=== PATIENT | male | born 1965 | race Caucasian/White ===

== ENCOUNTER → 2021-08-09 | Outpatient (CLI) | payer BC ==
--- NOTE | 2021-08-09 17:38 | Diagnostic Imaging Report ---
PA and lateral chest at 4:51 PM INDICATION: Shortness of breath COMPARISON: There are no prior studies available for comparison. The heart size is within normal limits. There is no evidence for failure, pneumonia or for a pleural effusion. On the PA view, there is a small 4 mm fairly well-circumscribed nodular density near the apex of the heart. This finding is not well-visualized on the lateral view. I suspect this is a small granuloma and not a neoplastic nodule. If previous studies are available, they would be helpful for comparison. If there are no prior studies available, then CT of the chest should be considered for further study. The mediastinum is not widened. The osseous structures are intact. IMPRESSION: 1. There is no evidence for active disease. 2. The small nodular density near the apex of the heart is most likely a benign process. Recommendations as above. Dictated by: Dictated on workstation # [id number]
== END ==
LOC: RAD FS 16:41
PROVIDERS: ATTEND Nurse Practitioner Family
DX: R06.02 Shortness of breath (principal); R93.1 Abnormal findings on diagnostic imaging of heart and coronary circulation
CPT/HCPCS: 71046

== ENCOUNTER → 2021-09-02 | Outpatient (CLI) | payer BC ==
[~2021-09-02] MED LIST: CATHETER FLUSH 10 ML SYR IV PRN; HOLD METFORMIN - RECEIVED CONTRAST 20 ML VIAL IV SCH; IOHEXOL 350 MG/ML 100 ML (OMNIPAQUE 350) VIAL IV ONE; NS 100 ML (IVPB) BAG IV ONE
--- NOTE | 2021-09-02 14:44 | Diagnostic Imaging Report ---
PROCEDURE: CT chest with contrast only. TECHNIQUE: Multiple contiguous axial images were obtained through the chest after administration of intravenous contrast. Auto Exposure Controls were utilized during the CT exam to meet ALARA standards for radiation dose reduction. INDICATION: Pulmonary nodule, cough. COMPARISON: Radiographs dated 08/09/2021. FINDINGS: A precarinal lymph node is present, which is at the upper limits of normal in size measuring up to 0.9 cm in short dimension. Multiple calcified mediastinal and left hilar lymph nodes are present, particularly within the left infrahilar location. No aneurysmal dilatation of the thoracic aorta. The heart is within normal limits in size. No pericardial effusion. No pleural effusion. The trachea is patent. No pneumothorax. Calcified granuloma is present within the posterior aspect of the left lower lobe. This is felt to correspond to the nodular density on recent radiographs. 0.4 cm right upper lobe pulmonary nodule, series 3, image 39. Additional 0.5 cm pleural-based right lower lobe pulmonary nodule. 0.5 cm right middle lobe pulmonary nodule. No significant hiatal hernia. Calcified splenic granuloma. The visualized upper abdomen is unremarkable. Scattered osseous degenerative changes without acute osseous abnormality. IMPRESSION: Previously questioned left basilar pulmonary nodule has shown to correspond to a benign calcified granuloma. Sub-0.6 cm bilateral pulmonary nodules. These are indeterminate. These may simply relate to noncalcified granuloma. A follow-up CT of the chest is recommended in 12 months to reevaluate. Additional findings as above. Dictated by: Dictated on workstation # [id number]
== END ==
LOC: RAD 12:45
PROVIDERS: ATTEND Emergency Medicine
DX: R91.8 Other nonspecific abnormal finding of lung field (principal); R05.9 Cough, unspecified
CPT/HCPCS: 71260